=== PATIENT | female | born 1990 | race Caucasian/White ===

== ENCOUNTER 2017-08-29 14:05 | Emergency (ER) | payer OTHER ==
[~2017-08-29] VITALS: Ht 160 cm; Wt 53.5 kg
[2017-08-29 14:11] VITALS: Ht 160 cm; Wt 53.5 kg
[2017-08-29 14:56] VITALS: BP 105/69
== END 2017-08-29 14:56 | disposition home or self-care (01) ==
LOC: ED 14:05
DX: J02.9 Acute pharyngitis, unspecified (principal); K12.2 Cellulitis and abscess of mouth

== ENCOUNTER 2017-09-04 10:58 | Emergency (ER) | payer OTHER ==
[~2017-09-04] VITALS: Ht 154.9 cm; Wt 52.4 kg
[2017-09-04 11:08] VITALS: BP 133/96; Ht 154.9 cm; Wt 52.4 kg
== END 2017-09-04 11:56 | disposition home or self-care (01) ==
LOC: ED 10:58
DX: S97.112A Crushing injury of left great toe, initial encounter (principal); W22.8XXA Striking against or struck by other objects, initial encounter; Y93.89 Activity, other specified; Y92.89 Other specified places as the place of occurrence of the external cause; Y99.8 Other external cause status